=== PATIENT | female | born 1985 | race Caucasian/White ===

== ENCOUNTER 2019-09-17 16:36 | Outpatient (CLI) | payer BC, SELFPAY ==
--- NOTE | ~2019-09-17 | US_ITS ---
EXAMINATION: US OB <=14 wk fetus w TV EXAM DATE: 09/17/2019 17:22 INDICATION: For dating. 1st trimester. TECHNIQUE: Pelvic obstetrical transabdominal and transvaginal sonogram was performed by a technologi . There are multiple grayscale and Doppler images available for interpretation. There are no foster ier studies of this gestation for comparison. FINDINGS: Uterus measures 9.0 x 4.7 x 6.1 cm. There is intrauterine gestation sac with yolk sac iden tified, but no pole at this time. The 8 mm mean sac diameter corresponds to estimated gestatio nal age by ultrasound of 5 weeks 3 days, estimated date of confinement 07/16/2020. There is a moderat e size subchorionic hemorrhage measuring 2.5 x 1.4 cm diameter by 3 mm in thickness. Left ovary has an anechoic structure likely the corpus luteal cyst at 1.7 cm. IMPRESSION: Early intrauterine gestation sac with moderate size subchorionic hemorrhage. Reviewed, dictated and finalized at location A. IMPRESSION: Early intrauterine gestation sac with moderate size subchorionic he morrhage.
== END 2019-09-17 16:37 | disposition home or self-care (01) ==
LOC: ANHIMG 16:37
PROVIDERS: PCP Physician Assistant; Visit Provider Obstetrics & Gynecology
DX: O26.841 Uterine size-date discrepancy, first trimester (principal); O36.8911 Maternal care for other specified fetal problems, first trimester, fetus 1
CPT/HCPCS: 76801; 76817

== ENCOUNTER 2019-09-26 17:12 | Outpatient (CLI) | payer BC, SELFPAY ==
--- NOTE | ~2019-09-26 | US_ITS ---
EXAMINATION: US OB <=14 wk fetus w TV DATE: 09/26/2019 17:44 INDICATION: Chronic hemorrhage with spotting in . TECHNIQUE: Real-time pelvic ultrasound utilizing both a transvaginal and transabdominal probe was pe rformed. The interpreting radiologist was not present for the study. COMPARISON: 09/17/2019 FINDINGS: The uterus measures 10.6 x 4.8 x 6.2 cm. There is an intrauterine gestational sac. A yolk sac is see n. There is some thickening along one side of the yolk sac potentially a 2 mm pole. The mean sa c diameter measures 11 mm, which correlates with an estimated gestational age of 5 weeks and 5 days. No heart motion identified on color Doppler which may be due to early stage of . The right ovary measures 3.0 x 1.7 x 1.8 cm. The left ovary measures 2.7 x 2.9 x 2.7 cm. 1.3 cm anech oic likely corpus luteum cyst at the left ovary. There is no free fluid in the pelvis. IMPRESSION: 1. Intrauterine gestational sac with yolk sac and possible 2 mm pole. 2. Gestational age by ultrasound of 5 weeks 5 day(s) +/- 4 day(s) with ultrasound estimated date of d elivery (BRETT) of 05/23/2020 based on mean sac diameter. Reviewed, dictated and finalized at location A. IMPRESSION: 1. Intrauterine gestational sac with yolk sac and possible 2 mm pole. 2. Gestational age by ultrasound of 5 weeks 5 day(s) +/- 4 day(s) with ultrasou nd estimated date of delivery (BRETT) of 05/23/2020 based on mean sac diameter.
== END 2019-09-26 17:13 | disposition home or self-care (01) ==
PROVIDERS: PCP Physician Assistant; Visit Provider Obstetrics & Gynecology
DX: O26.21 Pregnancy care for patient with recurrent pregnancy loss, first trimester (principal); O36.8910 Maternal care for other specified fetal problems, first trimester, not applicable or unspecified
CPT/HCPCS: 76801; 76817

== ENCOUNTER 2020-01-18 09:35 | Outpatient (CLI) | payer BC, SELFPAY ==
--- NOTE | ~2020-01-18 | US_ITS ---
EXAMINATION: US OB <=14 wk fetus w TV DATE: 01/18/2020 10:28 INDICATION: First trimester assessment TECHNIQUE: Real-time pelvic transabdominal and transvaginal ultrasound was performed. COMPARISON: None. FINDINGS: The uterus measures 12.2 x 6.6 x 5.8 cm. There is an intrauterine gestational sac. There i s a 1.9 x 1.1 x 0.9 cm hypoechoic area adjacent to the gestational sac. A yolk sac is identified. Fet al heart motion is identified measuring 144 beats per minute (bpm) by M-mode Doppler. The crown rump length measures 10 mm , which correlates with an estimated gestational age of 7 weeks and 1 day (s) (+/-) 5 day(s). The right ovary measures 4.3 x 3.5 x 2.3 cm. The left ovary measures 2.5 x 1.7 x 1.7 cm. There is nor mal vascular flow in the ovaries. There is no free fluid in the pelvis. IMPRESSION: 1. Live intrauterine with an estimated gestational age of 7 weeks and 1 day(s) (+/-) 5 day( s) and an estimated delivery date of 09/04/2020. 2. Small subchorionic hematoma. Reviewed, dictated and finalized at location A. LOGY TEACHER IMPRESSION: 1. Live intrauterine with an estimated gestational age of 7 weeks and 1 day(s) (+/-) 5 day(s) and an estimated delivery date of 09/04/2020. 2. Small subchorionic hematoma.
== END 2020-01-18 09:36 | disposition home or self-care (01) ==
PROVIDERS: PCP Physician Assistant; Visit Provider Obstetrics & Gynecology
DX: O26.21 Pregnancy care for patient with recurrent pregnancy loss, first trimester (principal); Z3A.01 Less than 8 weeks gestation of pregnancy; O36.8911 Maternal care for other specified fetal problems, first trimester, fetus 1
CPT/HCPCS: 76801; 76817

== ENCOUNTER 2020-02-20 15:38 | Outpatient (CLI) | payer BC, SELFPAY ==
--- NOTE | ~2020-02-20 | US_ITS ---
EXAMINATION: US OB <= 14 weeks fetus DATE: 02/20/2020 16:10 INDICATION: Subchorionic hematoma during first trimester TECHNIQUE: Real-time pelvic ultrasound utilizing both a transvaginal and transabdominal probe was pe rformed. The interpreting radiologist was not present for the study. COMPARISON: None. FINDINGS: The uterus measures 12.8 x 10.0 x 6.0 cm. There is an intrauterine gestational sac. A yolk sac and f etal pole are identified. The crown rump length measures 6.4 cm, which is concordant within range of variation of the provided estimated gestational age of 12 weeks and 2 days. heart motion is albert ntified measuring 169 beats per minute (bpm) by M-mode Doppler. The placenta is posterior with no alvina dent subchorionic hematoma. IMPRESSION: 1. Single living fetus with heart of 169 bpm. 2. [place]-rump length of 6.4 cm which is concordant within 4 days of the provided estimated gestationa l of 12 weeks 2 day(s). 3. Posterior placenta with no evident subchorionic hematoma. Reviewed, dictated and finalized at location A. K ORDER LISTER IMPRESSION: 1. Single living fetus with heart of 169 bpm. 2. [place]-rump length of 6.4 cm which is concordant within 4 days of the provide d estimated gestational of 12 weeks 2 day(s). 3. Posterior placenta with no evident subchorionic hematoma.
== END 2020-02-20 15:39 | disposition home or self-care (01) ==
PROVIDERS: PCP Physician Assistant; Visit Provider Obstetrics & Gynecology
DX: O36.8910 Maternal care for other specified fetal problems, first trimester, not applicable or unspecified (principal); Z3A.12 12 weeks gestation of pregnancy
CPT/HCPCS: 76801

== ENCOUNTER 2020-08-24 11:16 | Outpatient (CLI) | payer BC, SELFPAY ==
[2020-08-24 12:08] LABS: Hematocrit 34.3 % (37.0-47.0); Hemoglobin 11.6 g/dL (12.0-15.0); Mean Corpuscular HGB Conc 33.8 g/dl (32-36); Mean Corpuscular Hemoglobin 31.9 pg (26-34); Mean Corpuscular Volume 94.2 fl (80-100); Mean Platelet Volume 11.3 fl (7.4-10.4); Platelet Count Result 217 k/mm3 (150-375); Red Blood Count 3.64 M/mm3 (4.2-5.4); Red Cell Distribution Width 12.6 % (11.5-14.5)
[2020-08-25 08:17] LABS: Rapid Plasma Reagin Non-Reactive (NonReactive)
== END 2020-08-24 11:17 | disposition home or self-care (01) ==
PROVIDERS: PCP Physician Assistant; Visit Provider Obstetrics & Gynecology
DX: Z34.93 Encounter for supervision of normal pregnancy, unspecified, third trimester (principal); Z3A.00 Weeks of gestation of pregnancy not specified
CPT/HCPCS: 36415; 85027; 86592; 86850; 86900; 86901

== ENCOUNTER 2020-08-25 05:27 | Inpatient (IN) | payer BC, SELFPAY ==
[2020-08-25] VITALS (94 sets, daily range): BP systolic 76–122; BP diastolic 47–81; PULSE 55–95; RESP 13–20; TEMP 35.8–36.6; O2SAT 92–99; BMI 35.4
--- NOTE | 2020-08-25 05:27 | LDADM ---
This patient, Denise Doll, was admitted to Labor/Delivery/Recovery 120 on 08/25/20 at 05:27. Plans for labor, pain management and were discussed with patient. Patient/family oriented to hospital policies and general routines including ID bracelet, bed and alarms, visiting hours, pain management, procedures, bathroom and other care routines, personal items, smoking policy, room service/diet and guest tray routines, security routines, and visiting hours. Patient/Family are encouraged to report perceived risks to care and to ask questions if they do not understand what they are told or what they should do. See OBIX for further documentation.
[2020-08-25] MEDS: LACTATED RINGERS 1,000 ML 125 ML IV CONT ×2 (06:19→07:14)
--- NOTE | 2020-08-25 06:51 | PM.IMHP ---
H&P: HPI History of Present Illness Date/Time: 08/25/20 06:51 35 y/o @ 39 weeks by a 13 week ultrasound for EDC of 09/01/20 is admitted for a repeat csection. complicated by a prior csection , depression, asthma(mild) and AMA. Patient reports movement occasional contraction and denies leakage of fluid or bleeding. Chief Complaint: scheduled for a repeat csection PMFSH Past Medical History Medical History (Updated 08/25/20 @ 06:54 by Geovanny Mendez MD) Single delivery by Surgical History Surgical History (Updated 08/25/20 @ 06:58 by Geovanny Mendez MD) S/P repeat low transverse Family History Family History Mother Asthma Sibling Asthma Father Hypertension Social History Social History Smoking status: Never smoker Second hand tobacco smoke exposure: No Substance use: never Gender identity (if verbalized by the patient): Female Spiritual care concerns: No Meds Home Medications and Allergies Home Medications Medication Instructions Recorded Confirmed Type PNV cmb#95-ferrous fumarate-FA 1 tablet PO DAILY 08/04/20 08/25/20 History [] albuterol 90 mcg INHALATION 08/04/20 History aspirin 81 mg PO DAILY 08/04/20 08/04/20 History cholecalciferol (vitamin D3) 250 mcg PO DAILY 08/04/20 08/25/20 History [Vitamin D3] ferrous sulfate [Slow Fe] 142 mg PO DAILY 08/04/20 08/25/20 History fluticasone propion-salmeterol 1 inh INHALATION Q12H 08/04/20 08/04/20 History [Advair Diskus] montelukast [Singulair] 10 mg PO DAILY 08/04/20 08/25/20 History Allergies Allergy/AdvReac Type Severity Reaction Status Date / Time Sulfa (Sulfonamide Allergy Intermediate HIVES,FEVER Verified 04/08/18 14:41 Antibiotics) Vital Signs Vital Signs - 24 hr 08/25/20 05:51 Pulse Rate 95 Blood Pressure 122/78 Exam Const: General: cooperative Nutritional Appearance: well nourished Orientation/consciousness: patient oriented x3 Cardio: Rate: regular rate Rhythm: regular rhythm GI: Auscultation: normal bowel sounds Other: Gravid uterud FHTs 140s occcasional contraction : Speculum Exam - Vagina: normal appearance of the vagina Bimanual Exam- Adnexa, other: normal adnexae Assessment and Plan Assessment and plan (1) S/P repeat low transverse : Code(s): Z98.891 - History of uterine scar from previous surgery Status: Acute Assessment and Plan: scheduled for a repeat csection. Risk and benefits reviewed in detail with patient including bleeding infection trauma and damage to surrounding organs.
--- NOTE | 2020-08-25 07:13 | WPDANESEPPF ---
Anes - Initial Pre Proc Eval Procedure: Operation Date: 08/25/20 07:30 Proposed Procedures p Repeat Section - Geovanny Mendez MD Date/Time: 08/25/20 07:13 Surgeon: Geovanny Mendez MD Pre Op Diagnosis: C/S Patient Data Age: 35 Gender: F Height: 1.63 m Weight: 93.6 kg Last Vital Signs Pulse 95 08/25/20 05:51 BP 122/78 08/25/20 05:51 Allergies Allergy/AdvReac Type Severity Reaction Status Date / Time Sulfa (Sulfonamide Allergy Intermediate HIVES,FEVER Verified 04/08/18 14:41 Antibiotics) Home Medications Medication Instructions Recorded Confirmed Type PNV cmb#95-ferrous fumarate-FA 1 tablet PO DAILY 08/04/20 08/25/20 History [] albuterol 90 mcg INHALATION 08/04/20 History aspirin 81 mg PO DAILY 08/04/20 08/04/20 History cholecalciferol (vitamin D3) 250 mcg PO DAILY 08/04/20 08/25/20 History [Vitamin D3] ferrous sulfate [Slow Fe] 142 mg PO DAILY 08/04/20 08/25/20 History fluticasone propion-salmeterol 1 inh INHALATION Q12H 08/04/20 08/04/20 History [Advair Diskus] montelukast [Singulair] 10 mg PO DAILY 08/04/20 08/25/20 History Patient hx anesthesia problems: none Family hx anesthesia problems: none PMFSH Past Medical History Medical History (Updated 08/25/20 @ 06:54 by Geovanny Mendez MD) Single delivery by Surgical History Surgical History (Updated 08/25/20 @ 06:58 by Geovanny Mendez MD) S/P repeat low transverse Family History Family History Mother Asthma Sibling Asthma Father Hypertension Social History Social History Smoking status: Never smoker Second hand tobacco smoke exposure: No Substance use: never Gender identity (if verbalized by the patient): Female Spiritual care concerns: No Anes - Eval Final PreProcedure Day of Procedure 08/25/20 07:13 Patient weight: obese Heart: regular rate and rhythm Lungs: clear to auscultation Airway: Mallampati scale class II Neurological: alert and oriented Last oral intake: >/= 8 hours ASA classification: II Emergent: no Anesthetic plan: proceed Anesthesia type and monitoring: regional spinal and standard monitoring Informed Consent: The patient's anesthetic plan and its attendant risks and benefits were discussed with the patient/family/POA. Questions were solicited and answers provided to the satisfaction of the patient/family/POA.
--- NOTE | 2020-08-25 07:13 | WPDHPUPDATE1 ---
History and Physical Update Update Date/Time: 08/25/20 07:13 History and Physical has been reviewed, including an updated exam of the patient. There are NO changes in the patient's condition. Risks, benefits, and alternatives have been discussed and questions answered. Patient agrees to proceed with procedure.
[2020-08-25] MEDS: ceFAZolin 2 GM/D5W 50 ML 2 GM/50 ML BAG IVPB (07:22)
--- NOTE | 2020-08-25 08:23 | W.PM.PROC2 ---
Procedure Note - Detailed Date of Procedure 08/25/20 Pre-op Diagnosis C/S Post-op Diagnosis same Procedure Performed Repeat LTCS Surgeon Geovanny Mendez MD Anesthesia spinal Findings male infant vertex Description of Procedure The patient was taken to the operating room and placed in a supine position with a leftward tilt. She was prepped and draped in the normal sterile fashion after spinal anesthesia was found be adequate. A Pfannenstiel skin incision was made with a scalpel carried down to underlying layer of fascia. This fascia incision was then extended bilaterally with Peterson scissors. Superior aspect incision was grasped with Nawaf clamps elevated dissected off the rectus muscles inferior aspect of the incision was grasped with Nawaf clamps elevated and dissected off the rectus muscles. The rectus muscles were in the midline with blunt and sharp dissection. The peritoneum was entered bluntly. The bladder blade was inserted the The vesicouterine fold was grasped with peons in and sharply with Metzenbaum scissors creating a bladder flap with sharp and blunt dissection. bladder blade was reinserted lower uterine segment was incised in transverse fashion with scalpel. head delivered atraumatically the remainder of the fetus was delivered and nuchal cord x1 loose. Cord was clamped and cut and handed off to the waiting nurse cord blood was obtained for gases were obtained. The placenta was delivered spontaneously and the uterus was cleared of all clots and debris. The uterus was exteriorized and closed with 0 Monocryl in a running locked fashion a 2nd layer of the same suture was used to imbricate this incision. The uterus was returned to the abdomen the gutters were cleared of all clots debris uterine incision was covered by Interceed in a T-fashion. Muscles were examined for hemostasis. The fascia was closed with 0 Vicryl in a running fashion. The subcutaneous tissue was irrigated hemostasis assured. And the subcutaneous tissue was closed with 3-0 plain gut the skin was closed with 4 Vicryl on a Sadiq needle. Sponge lap and needle counts were correct x2 patient received 2 g Ancef prior to skin incision. patient was taken to recovery room in stable condition Estimated Blood Loss 280 Urine Output 200 Drains Yes Packing No Pathology none sent Complications None Condition stable Disposition PACU
[2020-08-25] MEDS: METHYLERGONOVINE MALEATE 0.2 MG/ML VIAL IM (09:45)
[2020-08-25] MEDS: diphenhydrAMINE HCl INJ 50 MG/ML VIAL 12.5 MG IV PUSH ×2 (09:45→12:20)
[2020-08-25] MEDS: miSOPROStol 200 MCG TABLET 800 MCG RECTAL (09:46)
[2020-08-25] MEDS: OXYTOCIN 30 UNITS/NS 500 ML 30 UNITS/500 ML BAG 125 UNITS IV CONT (09:49)
[2020-08-25] MEDS: fentaNYL CITRATE INJ (*CRX) 100 MCG/2 ML VIAL 25 MCG IV PUSH ×2 (11:39→12:20)
[2020-08-25] MEDS: DEXTROSE 5%/0.45% SOD CHL 1,000 ML 125 ML IV CONT (14:37)
--- NOTE | 2020-08-25 15:00 | OBPPTRN ---
[id number] Patient transferred to post room #278 via stretcher. Support person present. Oriented to unit, room, information board, rooming in, admission packet and security measures. Patient verbalizes understanding.
[2020-08-25] MEDS: DOCUSATE SODIUM 100 MG CAPSULE PO (15:40)
[2020-08-25] MEDS: LORATADINE 10 MG TABLET PO (15:40)
[2020-08-25] MEDS: KETOROLAC 30 MG/ML VIAL (*BKC) IV PUSH (15:49)
[2020-08-25] MEDS: ASPIRIN 81 MG CHEWABLE TABLET PO (20:20)
[2020-08-25] MEDS: HYDROcodone/acetaminophen (*CRX) 5-325 MG TABLET 1 TAB PO (20:20)
[2020-08-25] MEDS: MONTELUKAST SODIUM 10 MG TABLET PO (20:20)
[2020-08-25] MEDS: IBUPROFEN 600 MG TABLET PO (23:12)
[2020-08-26] VITALS: BP 120/71; PULSE 76; RESP 16; TEMP 36.5; O2SAT 99
[2020-08-26] MEDS: SIMETHICONE 80 MG TAB.CHEW PO ×3 (03:20→22:00)
[2020-08-26] MEDS: HYDROcodone/acetaminophen (*CRX) 5-325 MG TABLET 1 TAB PO ×4 (03:20→22:00)
[2020-08-26 03:30] VITALS: BP 115/70; PULSE 72; RESP 16; TEMP 36.4; O2SAT 99
[2020-08-26] MEDS: IBUPROFEN 600 MG TABLET PO ×3 (05:18→22:00)
[2020-08-26 05:51] LABS: Basophils Percent Auto 0.3 % (0.2-1.2); Eosinophils Absolute Auto 0.2 K/mm3 (0-0.3); Hematocrit 31.7 % (37.0-47.0); Hemoglobin 10.5 g/dL (12.0-15.0); Immature Granulocyte Absolute 0.12 K/mm3 (0.00-0.031); Immature Granulocyte Percent A 0.8 % (0-0.5); Lymphocytes Absolute Auto 2.62 K/mm3 (0.9-3.2); Lymphocytes Percent Auto 16.9 % (18.3-44.2); Mean Corpuscular HGB Conc 33.1 g/dl (32-36); Mean Corpuscular Hemoglobin 31.8 pg (26-34); Mean Corpuscular Volume 96.1 fl (80-100); Mean Platelet Volume 11.6 fl (7.4-10.4); Monocytes Absolute Auto 0.7 K/mm3 (0.1-0.6); Monocytes Percent Auto 4.8 % (2.6-8.5); Neutrophils Absolute Auto 11.9 K/mm3 (1.3-6.7); Neutrophils Percent Auto 76.2 % (45.5-73.1); Platelet Count Result 194 k/mm3 (150-375); Red Cell Distribution Width 12.7 % (11.5-14.5); White Blood Count 15.5 K/mm3 (4.5-10.0)
[2020-08-26 07:50] VITALS: BP 120/70; PULSE 81; RESP 16; TEMP 36.6; O2SAT 100
[2020-08-26] MEDS: DOCUSATE SODIUM 100 MG CAPSULE PO ×2 (08:15→16:38)
[2020-08-26] MEDS: ASPIRIN 81 MG CHEWABLE TABLET PO (08:15)
[2020-08-26] MEDS: HYDROcodone/acetaminophen (*CRX) 10-325 MG TABLET 1 TAB PO (08:15)
--- NOTE | 2020-08-26 13:50 | PC.NURSE ---
Consult with pt., mother reports infant is eagerly latching. She has some difficulties with right breast, as did first child. Right breast is markedly larger than left and nipple is smaller and soft. Discussed rolling at nipple and offered Latch Assist to draw out and firm up nipple before attempting next feeding. Mother is willing to use. Requested mother call out next feeding for assist.
--- NOTE | 2020-08-26 15:32 | WPDANLDNPN2 ---
Anes-Prog Note L&D-Neuraxial Date/Time: 08/26/20 15:32 Neuraxial medications: intrathecal PF morphine Opiod-related complaints: none Patient feedback: Patient satisfied with post-operative pain management.
--- NOTE | 2020-08-26 15:32 | WPDANLDPN2 ---
Anes-Prog Note L&D Date/Time: 08/26/20 15:32 Comfortable throughout: section Neuraxial method: spinal Epidural/Spinal procedure site: clean & non-tender Neuro status: Neuro function grossly intact. Cardiovascular status: normal Respiratory status: normal Airway patency: baseline Mental status: baseline Post-Op hydration status: normal Vital Signs: Last Vital Signs Temp 36.6 C 08/26/20 07:50 Pulse 81 08/26/20 07:50 Resp 16 08/26/20 07:50 BP 120/70 08/26/20 07:50 Pulse Ox 100 08/26/20 07:50 Pain score (VAS): 2 I/O: Intake & Output 08/25/20 08/26/20 08/26/20 23:59 07:59 15:59 Intake Total 950 Output Total 1300 1275 400 Balance -350 -7045 400 Post-procedural complaints: none Patient feedback: Patient satisfied with anesthetic care.
--- NOTE | 2020-08-26 16:58 | P.PNOB_ITS ---
OB - PN: Subj Subjective Date/time seen: 08/26/20 16:58 doing okay pain controlled minimal bleeding OB - PN: Obj Data Labs CBC & Chem 7: 08/26/20 05:23 Labs: Laboratory Results - last 24 hr 08/26/20 05:23 WBC 15.5 H RBC 3.30 L Hgb 10.5 L Hct 31.7 L MCV 96.1 MCH 31.8 MCHC 33.1 RDW 12.7 Plt Count 194 MPV 11.6 H Immature Gran % (Auto) 0.8 H Neut % (Auto) 76.2 H Lymph % (Auto) 16.9 L [place] % (Auto) 4.8 Eos % (Auto) 1.0 Baso % (Auto) 0.3 Lymph # (Auto) 2.62 [place] # (Auto) 0.7 H Eos # (Auto) 0.2 Baso # (Auto) 0.0 Abs Immat Gran (auto) 0.12 H Absolute Neuts (auto) 11.9 H Absolute Nucleated RBC 0.0 Nucleated RBC % 0.0 OB - PN A/P Assessment and Plan (1) S/P repeat low transverse : Code(s): Z98.891 - History of uterine scar from previous surgery Status: Acute Assessment and Plan: continue with pp care. Time Spent With Patient Time: Total time spent is greater than 50% in coordination of care (as documented) at patient's floor/unit and/or counseling patient: Exam GI: Other: incision clean dry and intact. ff below umbilicus
[2020-08-26 19:13] VITALS: BP 126/68; PULSE 91; RESP 16; TEMP 36.8
[2020-08-27] MEDS: SIMETHICONE 80 MG TAB.CHEW PO (01:35)
[2020-08-27] MEDS: HYDROcodone/acetaminophen (*CRX) 5-325 MG TABLET 1 TAB PO ×2 (01:35→07:24)
[2020-08-27] MEDS: ASPIRIN 81 MG CHEWABLE TABLET PO (07:22)
[2020-08-27] MEDS: MULTIVIT/MIN/PREN/FOL AC/IRON TABLET 1 TAB PO (07:23)
[2020-08-27] MEDS: DOCUSATE SODIUM 100 MG CAPSULE PO (07:23)
[2020-08-27] MEDS: IBUPROFEN 600 MG TABLET PO (07:24)
[2020-08-27 08:45] VITALS: BP 110/71; PULSE 77; RESP 18; TEMP 36.4; O2SAT 99
--- NOTE | 2020-08-27 09:40 | PC.NURSE ---
Mother called out for assist with feeding, reporting is having issues with latching to left breast. Mother reports bottle feeding once during the night due to fussiness from . Left nipple is not as full as right and less protruding. Suggested mother use the Latch Assist. Mother reports she does not like the feel. Demonstrated how to gently roll out nipple. Nipple lucy out with gentle stimulation of rolling. Mother attempts in cradle, suggested to switch to cross cradle to aid in guided asymmetrical latch. Reviewed positioning/alignment in cross cradle, holding breast in ?U? hold and guided asymmetrical latch on. Discussed rational for each. Infant able to latch correctly with first attempt. nursed eagerly, with steady draws and frequent swallowing noted. Suggested mother stimulate while feeding to increase stimulate, increase intake and to assist with maintaining deep latch. Reviewed signs of a correct latch, effective nursing and suck swallow ratio. would slip to shallow latch, mother reports tenderness. Demonstrated how to adjust latch more deeply while feeding. Mother reports she can feel change in latch and has no tenderness. Nipple care reviewed of lanolin after feedings, warm compresses as needed. Suggested mother hold breast during entire feeding to assist maintaining latch. Mother is able to independently latch infant with appropriate positioning/alignment. She denies any nipple discomfort, is feeding as required and waking infant to feed if needed. Infant has had at least 8 effective feedings in the past 24 hours, and is currently meeting outcomes for weight, output, jaundice and feeding frequencies. Mother states she feels confident to continue effective at home. Reviewed transition to breast milk, signs of adequate intake, and engorgement/relief. Instructed to call ICP if intake/output less than required. Reviewed regular medications mother is taking. Information provided per [place]. Reviewed community resources on the [facility] website and in the Mom/Baby guide. Information on outpatient services provided. Mother has no further questions at this time.
[2020-08-27 09:53] VITALS: PULSE 77; RESP 18; O2SAT 99
--- NOTE | 2020-08-27 12:07 | PM.OBPNVD ---
OB - PN: Subj Subjective Date/time seen: 08/27/20 12:07 patient desires home having some itching with meds used benadryl and claritin OB - PN: Obj Data Labs CBC & Chem 7: 08/26/20 05:23 OB - PN A/P Assessment and Plan (1) S/P repeat low transverse : Code(s): Z98.891 - History of uterine scar from previous surgery Status: Acute Assessment and Plan: d/c home with follow up in 1 week. Time Spent With Patient Time: Total time spent is greater than 50% in coordination of care (as documented) at patient's floor/unit and/or counseling patient: Exam Narrative: Exam Narrative: inc c/d/i ff below umbilicus
[2020-08-30 10:47] VITALS: BP 132/75; PULSE 72; RESP 20; TEMP 36.9; O2SAT 100
--- NOTE | 2020-09-03 10:38 | PM.OBDSVD ---
DS: Admitting Diagnosis Admitting Diagnosis repeat csection OB - DS: Summary OB Procedures : None OB Procedures Intrapartum: OB Procedures: : None Peripartum Data Procedures: Procedures Operation Date: 08/25/20 07:30 Actual Procedure Side Surgeon p Section Geovanny Mendez MD Time Spent with Patient Time attestation: Total time spent providing and/or coordinating discharge services: Discharge Plan Discharge Attending physician on discharge: Geovanny Mendez Consulting providers: Oniel Edwards Discharging Clinician: Geovanny Mendez Patient Disposition: Home, Self-Care Activity: may shower and may drive after 2 weeks Diet: regular Wound Care Instructions: incision open to air Discharge Instructions: Education: Mom and Baby Guide Given to: Mother Follow-Up: Call your delivering provider's office for an appointment to be seen in: 1 Week Mom and baby should come to the [facility] for the follow-up appointment. Appointment Date/Time: August 30, 2020 at 10:00 am What to expect at your follow-up visit: Blood Pressure Check Physical Assessment Call [phone] if you are unable to keep your appointment time. BREAST CARE: * Wear a snug supportive bra. * For engorgement discomfort: Breast Feeding: * Apply warm moist washcloths * Express milk as needed to relieve engorgement * Wear loose clothing * For sore nipples: * Identify correct latch-on * Apply warm moist washcloths before and after nursing * Air dry nipples after nursing * May apply Lansinoh cream to nipples ABDOMINAL INCISION: (if applicable) * Allow incision to air dry * Do NOT use lotions for powders on your incision * When showering, allow soap and water to run over the incision, but do not wash incision EPISIOTOMY/PERINEAL CARE: * Until bleeding stops, use your spike bottle after urinating * Change your pad frequently throughout the day * No tub baths until seen by your physician - You may shower ACTIVITY: * Rest as much as possible. * Do not exercise or lift anything heavier than your baby (such as laundry or other children.) * Avoid stairs or driving as much as possible. * Do not put anything into the vagina. No douching, tampons, or sexual activity until seen by physician. NOTIFY PHYSICIAN IF YOU HAVE ANY QUESTIONS OR IF ANY OF THE FOLLOWING SYMPTOMS OCCUR: * If your incision becomes red, swollen, or more painful than what you have experienced in the hospital. * If your vaginal bleeding becomes foul smelling. * If your vaginal bleeding becomes more heavy than a period or if your bleeding changes from pink to bright red. However, you may pass an occasional walnut-sized clot once or twice for the first week . * If you experience a sharp, shooting pain in your calves. * If you discover a hard, reddened area on your breast or if you experience flu-like symptoms. DIET: * Eat regular, well-balanced meals. * Drink plenty of fluids daily. If , drink to thirst. Patient Instructions: (DC) Stand Alone Forms: General Discharge Information Follow-up/Referrals: Geovanny Mendez MD [Physician] - Discharge Medications: New hydrocodone-acetaminophen 5-325 mg Tablet 1 tablet PO Q3H PRN (Reason: Moderate Pain (4-6)) Qty: 20 RF: 0 Continued montelukast [Singulair] 10 mg Tablet 10 mg PO DAILY RF: 0 albuterol 90 mcg/actuation Aerosol 90 mcg INHALATION RF: 0 cholecalciferol (vitamin D3) [Vitamin D3] 125 mcg (5,000 unit) Tablet 250 mcg PO DAILY RF: 0 Slow Fe 142 mg (45 mg iron) Tablet Extended Release 142 mg PO DAILY RF: 0 PNV cmb#95-ferrous fumarate-FA [] 28 mg iron- 800 mcg Tablet 1 tablet PO DAILY RF: 0 fluticasone propion-salmeterol [Advair Diskus] 100-50 mcg/dose Blister With Device 1 inh INHALATION Q
== END 2020-08-27 10:42 | disposition home or self-care (01) | DRG 788 ==
LOC: ANHLDR 08:22 → ANHOB2 13:43
PROVIDERS: Admitting Provider Obstetrics & Gynecology; PCP Physician Assistant; Visit Provider Obstetrics & Gynecology
PROC: 10D00Z1 Extraction of Products of Conception, Low, Open Approach (ICD-10-PCS; CPT 59514; principal; 2020-08-25 07:30)
DX: O34.211 Maternal care for low transverse scar from previous cesarean delivery (principal); Z37.0 Single live birth; Z3A.39 39 weeks gestation of pregnancy; O99.824 Streptococcus B carrier state complicating childbirth; O99.344 Other mental disorders complicating childbirth; F32.9 Major depressive disorder, single episode, unspecified; J45.909 Unspecified asthma, uncomplicated; O99.52 Diseases of the respiratory system complicating childbirth; O99.214 Obesity complicating childbirth; E66.9 Obesity, unspecified
CPT/HCPCS: 36415; 85025; A9270; J0131; J0690; J1200; J1885; J2210; J2274; J2590; J3010; J7120